=== PATIENT | female | born 1945 | race Caucasian/White ===

== ENCOUNTER 2017-01-06 11:38 | Inpatient (IN) | payer OTHER, MEDICARE ==
[~2017-01-06] VITALS: Ht 158.8 cm; Wt 98.6 kg
[2017-01-17] MEDS ORDERED: CITA40TA4 PO (14:30)
[2017-01-17] MEDS ORDERED: MAPA500T13 PO (14:30)
[2017-01-17] MEDS ORDERED: ATOR10TA15 PO (14:30)
[2017-01-17] MEDS ORDERED: AMIT150T PO (14:30)
[2017-01-17] MEDS ORDERED: GABA600T PO (14:33)
[2017-01-17] MEDS ORDERED: LANS15CA PO (14:33)
[2017-01-17] MEDS ORDERED: LISI2.5T3 PO (14:33)
[2017-01-17] MEDS ORDERED: HYDR-3580 PO (14:33)
[2017-01-17] MEDS ORDERED: NADO40TA PO (14:35)
[2017-01-17] MEDS ORDERED: XARE20TA PO (14:36)
[2017-01-17] MEDS ORDERED: TRAZ1TAB45 PO (14:38)
[2017-01-17] MEDS ORDERED: LEVO.05 PO (14:40)
[2017-01-17] MEDS ORDERED: METF500T PO (14:40)
--- NOTE | 2017-01-20 23:40 | MH ---
cc: NEVIN MCBRIDE DATE OF ADMISSION: 01/21/2017 ADMITTING DIAGNOSIS: Osteoarthritis left knee. HISTORY OF PRESENT ILLNESS: This patient is a 71 year-old female with bilateral knee arthritis. The patient had a previous right knee replacement and had done well. The patient had a previous pulmonary embolism and is on Xarelto. The patient had extensive conservative care outlined in the attached records. This patient presents for surgical treatment. PAST MEDICAL HISTORY: See attached notes. SOCIAL HISTORY, FAMILY HISTORY, AND REVIEW OF SYSTEMS: See attached notes. PHYSICAL EXAMINATION: GENERAL: The patient is a 71 year-old female in moderate distress with the left knee. HEENT: Normocephalic, atraumatic. Pupils equal, round, reactive to light and accommodation. Extraocular motions intact. NECK: Supple. CHEST: Clear. HEART: Regular rate and rhythm. ABDOMEN: Soft, nontender, normoactive bowel sounds. MUSCULOSKELETAL EXAMINATION: Left knee, pain with range of motion, mild varus deformity. Crepitus range of motion. IMPRESSION: Osteoarthritis of the left knee. PLAN: Left total knee replacement arthroplasty. CONSENT: There are risks with surgery including infection, bleeding, loss of motion, continued pain, need for further surgery, neurologic or vascular injury, deep venous thrombosis, pulmonary embolism. The patient understands these issues and wishes to press on with surgery as outlined above. Nevin Mcbride MD [facility] /11:03 PM /11:34 PM
[2017-01-21] MEDS ORDERED: METOPROLOL TARTRATE 25 MG TAB PO PRN (08:30)
[2017-01-21] MEDS ORDERED: CHLORHEXIDINE GLUCONATE 2 % 1 PACK (2 CLOTHS) TOPICAL PRN (08:30)
[2017-01-21] MEDS ORDERED: INSULIN HUMAN REGULAR 1,000 UNITS/10 ML VIAL SQ PRN (08:30)
[2017-01-21] MEDS ORDERED: LACTATED RINGER'S 1000 ML IV PRN (08:30)
[2017-01-21] MEDS ORDERED: POVIDONE IODINE 5% (ANTISEPSIS KIT) 4 APPLICATIONS EACH NARE PRN (08:30)
[2017-01-21] MEDS ORDERED: SODIUM CHLORID 0.9% 500 ML IV PRN (08:30)
[2017-01-21] MEDS ORDERED: EXPAREL PERI-ARTICULAR INJECTION (TOTAL VOL. 60 ML) P-ARTICULR SCH ×2 (08:45)
[2017-01-21] MEDS ORDERED: VANCOMYCIN 1000 MG/NS 250 ML (for <70 kg) IV SCH ×2 (08:45)
[2017-01-21] MEDS ORDERED: ceFAZolin 2 GM PREMIX 50 ML IV SCH (08:45)
[2017-01-21] MEDS ORDERED: POVIDONE IODINE 7.5% SCRUB 118 ML BOTTLE TOPICAL SCH (08:45)
[2017-01-21] MEDS ORDERED: ENOX100P SQ (08:56)
[2017-01-21 08:59] VITALS: BP 124/65; PULSE 70; RESP 20; TEMP 98.6; O2SAT 94
[2017-01-21] MEDS ORDERED: SODIUM CHLORIDE 0.9% IV SCH (09:00)
[2017-01-21] MEDS ORDERED: TRANEXAMIC ACID IV SCH (09:00)
[2017-01-21] MEDS ORDERED: GENTAMICIN SULFATE 80 MG/2 ML VIAL ONE (09:15)
[2017-01-21] MEDS ORDERED: BUPIVACAINE LIPOSOME PF 1.3% 20 ML VIAL ONE (09:16)
[2017-01-21 09:21] LABS: BACTERIA, URINE RARE /hpf; BLOOD, URINE NEG (NEG); GLUCOSE,URINE NEG (NEG); HYALINE CAST, URINE 3 /lpf (RARE); KETONE, URINE NEG (NEG); MUCUS URINE FEW /lpf (OCC); NITRITE,URINE NEG (NEG); SQUAMOUS EPITHELIAL CELL URINE 1 /hpf (0-5); URINE COLOR YELLOW (YELLW/STRAW)
[2017-01-21 09:24] LABS: COMMENT (UR) CATH-CULTURE IND; CULTURE IF INDICATED CATH CULTURE IND
[2017-01-21] MEDS ORDERED: FAMOTIDINE 20 MG/2 ML VIAL ONE (10:24)
[2017-01-21] MEDS ORDERED: MIDAZOLAM HCL 2 MG/2 ML VIAL ONE (10:24)
[2017-01-21] MEDS ORDERED: ACETAMINOPHEN 1000 MG/100 ML VIAL IV ONE (10:40)
[2017-01-21] MEDS ORDERED: PHENYLEPH/NS 1000 MCG/10 ML SYR IV ONE (12:00)
[2017-01-21] MEDS ORDERED: NEOSTIGMINE 3 MG/3 ML SYR IV ONE (12:00)
[2017-01-21] MEDS ORDERED: ONDANSETRON HCL 4 MG/2 ML VIAL IV PUSH ONE (12:00)
[2017-01-21] MEDS ORDERED: ePHEDrine/NS 25 MG/5 ML SYR IV ONE (12:00)
[2017-01-21] MEDS ORDERED: LACTATED RINGER'S 1000 ML INJ 1,000 ML IV ONE (12:00)
[2017-01-21] MEDS ORDERED: PROPOFOL 200 MG/20 ML AMP IV ONE (12:00)
[2017-01-21] MEDS ORDERED: OXYC-392 PO (13:40)
[2017-01-21] MEDS ORDERED: XARE10TA PO (13:40)
--- NOTE | 2017-01-21 13:43 | PD.OP ---
cc: Allan Prieto MD Operative Report Date of Surgery: January 21, 2017 Preoperative Diagnosis: Osteoarthritis left knee Postoperative Diagnosis: Same Procedure: Left total knee replacement arthroplasty Anesthesia: Gen. with regional block Surgeon: Allan Prieto English Composition Teacher(s): MAURA Klein Operation and Findings: EBL: 200 cc INDICATION: This patient presents with long-standing arthritis of the knee. Attachment record documents conservative measures. The patient now presents for surgical treatment. NOTE: Janey Klein PA-C was present for the entire surgical procedure as my esl instructional assistant. In my medical opinion her skill and care was necessary for proper management of this patient. TOURNIQUET TIME: 49 minutes COMPANY: [employer] FEMUR: Size 3, posterior stabilized, left TIBIA: Size 2, fixed bearing PATELLA: 32 mm POLYETHYLENE INSERT: 11 mm PROCEDURE: This patient was brought the operating room and anesthetized in the supine position. The patient was positioned supine on the table. The tourniquet was placed about the thigh, and the leg was scrubbed with alcohol followed by Hibiclens followed by ChloraPrep and draped sterilely. A timeout was done, and antibiotics were given. After exsanguination the tourniquet was inflated to 250 mmHg. An anterior incision was made and a median parapatellar arthrotomy was performed. The patella was released laterally and subluxed allowing freehand cut of the patella which was then sized. A metal cap was placed over the exposed patellar surface for protection. A docking pilot hole was placed in the distal femur allowing a 5 valgus cut removing 10 mm from the distal femur. Anterior posterior and chamfer cuts were made. The posterior stabilize osteotomy was made. The attention was directed to the tibia. Retractors were positioned. The external alignment guide was used allowing the lateral tibia to be used as referencing guide and cut utilizing an oscillating saw taking care to avoid any injury to the surrounding soft tissues. This was sized properly. Trial reduction showed that the insert fit nicely. The patient had range of motion extension 0 flexion 120. A medial release was not necessary. The bony surfaces prepared. On the back table 2 packets of methylmethacrylate were mixed. The components were cemented. Excess cement was removed. The tourniquet let down and hemostasis was controlled. The final plastic insert was inserted. Range of motion was the same as previously noted. A drain was brought through a separate stab incision. The arthrotomy was repaired with interrupted #1 Vicryl suture, subcutaneous tissue 2-0 Vicryl suture and skin with metallic rodrigo A sterile dressing was applied. Sponge counts, needle counts and instrument counts were all correct. The patient tolerated procedure well and was taken to recovery in satisfactory condition. FINDINGS: There was severe osteoarthritis of the left knee. Mild instability was encountered. No complication was appreciated. Allan Prieto MD January 21, 2017 13:43
[2017-01-21] MEDS ORDERED: MISCELLANEOUS PHARMACY INFORMATION XX ONE (13:45)
[2017-01-21] MEDS ORDERED: Post-op Orders (for Pharmacy) MISC XX ONE (13:45)
[2017-01-21] MEDS ORDERED: ONDANSETRON HCL 4 MG/2 ML VIAL IVP PRN (13:45)
[2017-01-21] MEDS ORDERED: MORPHINE SULFATE 8 MG/ML INJ IM PRN (13:45)
[2017-01-21] MEDS ORDERED: MISCELLANEOUS NURSING INFORMATION XX PRN (13:45)
[2017-01-21] MEDS ORDERED: SODIUM CHLORIDE 0.9% FLUSH 5 ML FLUSH IVF PRN (13:45)
[2017-01-21] MEDS ORDERED: DO NOT ADM ANY ANTICOAGULANT DRUGS PRN (14:02)
[2017-01-21] MEDS ORDERED: PILL SPLITTER OTHER PRN (14:30)
[2017-01-21] MEDS: LACTATED RINGER'S 1000 ML INJ 1,000 ML IV SCH (14:34)
[2017-01-21] MEDS ORDERED: *morphine SULFATE 8 MG/ML PERIprocedure ONLY ONE ×2 (14:44→15:04)
--- NOTE | 2017-01-21 15:04 | RADRPT ---
EXAM DATE/TIME: 01/21/2017 14:30 [facility] COMPARISON: No previous studies available for comparison. INDICATIONS : Post op left knee surgery. MEDICAL HISTORY : Hypertension. Seizures. SURGICAL HISTORY : Total knee replacement, right. Hysterectomy. Appendectomy. ENCOUNTER: Initial ACUITY: 1 day PAIN SCORE: 0/10 LOCATION: Left Knee. FINDINGS: AP and lateral views of the left knee demonstrate changes consistent with recent total knee arthropla sty with metallic hardware in place in the distal femur and proximal tibia. There is a radiolucent pa tellar component. Skin rodrigo are present anteriorly. There is soft tissue gas present, as expected. A surgical drain is in place. CONCLUSION: Expected findings following left total knee arthroplasty. Nick Qureshi MD on January 21, 2017 at 15:01 Board Certified Radiologist. This report was verified electronically.
[2017-01-21 15:52] VITALS: BP 135/71; PULSE 80; RESP 17; TEMP 95.4; O2SAT 94
[2017-01-21] MEDS ORDERED: CPMMACHINE (17:27)
[2017-01-21] MEDS ORDERED: COMMODE 3-IN-11 MIS (17:28)
[2017-01-21] MEDS ORDERED: WALKER WHEELS/F1 MIS (17:28)
--- NOTE | 2017-01-21 17:29 | HHI.DCPOC ---
Discharge Care Plan Diagnosis: (1) Left knee pain (2) Osteoarthritis of left knee Your Health Problems Are: Incision/Drains Inflammation Swelling Goals to Promote Your Health * To prevent worsening of your condition and complications * To maintain your health at the optimal level Directions to Meet Your Goals Take your medications as prescribed Follow your dietary instruction Follow activity as directed Keep your appointments as scheduled Take your immunizations and boosters as scheduled If your symptoms worsen call your PCP, if no PCP go to Urgent Care Center or Emergency Room Smoking is Dangerous to Your Health. Avoid second hand smoke Call the 24-hour hour crisis hotline for domestic abuse at Bianca Hamlin January 21, 2017 17:29
--- NOTE | 2017-01-21 17:30 | HHI.DS ---
Discharge Summary Admission Date January 21, 2017 at 08:02 Discharge Date: Jan 24, 2017 Admitting Diagnosis see below Diagnosis: (1) Left knee pain Diagnosis: Principal (2) Osteoarthritis of left knee Diagnosis: Principal (3) Urinary retention Diagnosis: Secondary Procedures Left total knee arthroplasty Brief History This is a 71 year old female patient with a history of bilateral knee pain and arthritis for 4-5 years. She had a previous right total knee replacement. She did well surgically but experienced a postoperative pulmonary embolism which require long term use of anticoagulants. She continued to struggle with left knee pain but could not get clearance for further surgery. Multiple conservative measures were pursued including use of medications, a brace, multiple steroid and viscosupplement injections. Once she obtained medical clearance surgical treatment was recommended. She elected to move forward and presents for the above. Significant Findings Laboratory Tests Test 01/21/17 08:55 Urine Leukocyte Esterase MOD (NEG) Urine Bacteria RARE /hpf (NONE) Urine Mucus FEW /lpf (OCC) Hospital Course Surgical treatment was performed on the day of admission. She recovered well in PACU and was transferred to the orthopaedic floor. Pain was controlled with IV and oral medications. DVT prophylaxis was initiated pod#0 due to history of PE. Her xarelto dose was continued at 10mg daily versus 20mg daily to avoid excessive bleeding. She struggled with urinary retention though the patient has a long history of utilizing straight catheterization at home. She was compliant with physical therapy. After 3 days she was found to be stable and discharged to alf to assist her with her catheterizations. She was instructed to continue her xarelto 10 mg for 7 days and then return to 20mg dose thereafter. She was also to continue therapy and to ambulate regularly, and to pursue a high fiber diet for 5 days. Pt Condition on Discharge: Stable Discharge Disposition: Disch w/ Home Health Serv Discharge Instructions Diet Instructions: Diabetic Diet, High Fiber Diet Activities You Can Perform: Weight Bearing as Oz Activities to Avoid: Strenuous Activity New Medications: Commode 3-in-1 (Commode 3-in-1) 1 Mis Mis 1 EA .ROUTE DIRECTED #1 Ref 0 EA CPM-Continuous Passive Motion Machine (CPM-Continuous Passive Motion Machine) 1 Ea Device 1 EA .ROUTE DIRECTED #1 Ref 0 EA Oxycodone (Oxycodone) 5 Mg Tab 5 MG PO Q4H PRN PAIN #50 Ref 0 TAB Rivaroxaban (Xarelto) 10 Mg Tab 10 MG PO DAILY PRN Prevent Blood Clot #7 Ref 0 TAB Walker with Front Wheels (Walker with Front Wheels) 1 Mis Mis 1 EA .ROUTE DIRECTED #1 Ref 0 EA Continued Medications: Acetaminophen (Mapap Extra Strength) 500 Mg Tab 500 MG PO Q4-6H PRN HEADACHE Ref 0 TAB Amitriptyline (Amitriptyline) 150 Mg Tab 150 MG PO HS Control Depression #30 Ref 0 TAB Atorvastatin (Atorvastatin) 10 Mg Tab 10 MG PO HS Cholesterol Management #30 Ref 0 TAB Citalopram (Citalopram) 40 Mg Tab 40 MG PO DAILY Control Depression #30 Ref 0 TAB Gabapentin (Gabapentin) 600 Mg Tab 300 MG PO BID #60 Ref 0 TAB Hydrocodone-Acetaminophen (Hydrocodone-Acetaminophen) 7.5-325 mg Tab 1 TAB PO Q4H PRN PAIN Ref 0 TAB Lansoprazole (Lansoprazole) 15 Mg Capdr 15 MG PO DAILY Ref 0 CAP Levothyroxine (Synthroid) 50 Mcg Tab 50 MCG PO DAILY Thyroid #30 Ref 0 TAB Lisinopril (Lisinopril) 2.5 Mg Tab 2.5 MG PO DAILY #30 Ref 0 TAB Metformin (Metformin) 500 Mg Tab 500 MG PO DAILY With a meal Blood Sugar Management #30 Ref 0 TAB Nadolol (Nadolol) 40 Mg Tab 40 MG PO BID #30 Ref 0 TAB Trazodone HCl (Trazodone HCl) 150 Mg Tablet 100 MG PO HS Discontinued Medications: Enoxaparin Inj (Lovenox Inj) 100 Mg/Ml Syr 100 MG SQ BID Blood Clot Prevention Ref 0 SYRINGE Rivaroxaban (Xarelto) 20 Mg Tab 20 MG PO HS Blood Clot Prevention Ref 0 TAB Bianca Hamlin January 21, 2017 17:29
[2017-01-21 20:00] VITALS: BP 117/62; PULSE 88; RESP 22; TEMP 96.4; O2SAT 94
[2017-01-21] MEDS ORDERED: TEMAZEPAM 15 MG CAP PO PRN (21:00)
[2017-01-21] MEDS: SODIUM CHLORIDE 0.9% FLUSH 5 ML FLUSH IVF SCH (21:00)
[2017-01-21] MEDS: ATORVASTATIN 10 MG TAB PO SCH (22:01)
[2017-01-21] MEDS: AMITRIPTYLINE HCL 75 MG TAB PO SCH (22:02)
[2017-01-21] MEDS: traZODone HCL 100 MG TAB PO SCH (22:02)
[2017-01-21] MEDS: SENNOSIDES 8.6 MG TAB PO SCH (22:02)
[2017-01-21] MEDS: MAGNESIUM HYDROXIDE SUSP 30 ML CUP PO SCH (22:02)
[2017-01-21] MEDS: GABAPENTIN 300 MG CAP PO SCH (22:02)
[2017-01-21] MEDS: NADOLOL 40 MG TAB PO SCH (22:08)
[2017-01-22] VITALS (9 sets, daily range): BP systolic 103–143; BP diastolic 50–63; PULSE 78–96; RESP 17–20; TEMP 96–100.9; O2SAT 92–100
[2017-01-22] MEDS: oxyCODONE/ACETAMINOPHEN 5 MG/325 MG TAB PO PRN ×4 (00:11→16:11)
[2017-01-22] MEDS: RIVAROXABAN 10 MG TAB PO SCH (02:04)
[2017-01-22] MEDS: LACTATED RINGER'S 1000 ML INJ 1,000 ML IV SCH ×2 (02:06→14:32)
[2017-01-22] MEDS: LEVOTHYROXINE SODIUM 50 MCG TAB PO SCH (05:13)
[2017-01-22 07:42] LABS: HEMATOCRIT 28.4 % (35.0-46.0); REVIEW FLAG FINAL
[2017-01-22] MEDS: SODIUM CHLORIDE 0.9% FLUSH 5 ML FLUSH IVF SCH ×2 (09:00→21:00)
[2017-01-22] MEDS: MAGNESIUM HYDROXIDE SUSP 30 ML CUP PO SCH ×2 (09:09→22:20)
[2017-01-22] MEDS: LISINOPRIL 5 MG TAB PO SCH (09:10)
[2017-01-22] MEDS: GABAPENTIN 300 MG CAP PO SCH ×2 (09:10→22:20)
[2017-01-22] MEDS: metFORMIN HCL 500 MG TAB PO SCH (09:10)
[2017-01-22] MEDS: CITALOPRAM HYDROBROMIDE 40 MG TAB PO SCH (09:10)
[2017-01-22] MEDS: PANTOPRAZOLE SOD 20 MG DELAYED RELEASE TAB PO SCH (09:11)
[2017-01-22] MEDS: NADOLOL 40 MG TAB PO SCH ×2 (09:11→22:20)
--- NOTE | 2017-01-22 11:41 | HHI.FF ---
Face to Face Verification Diagnosis: (1) Left knee pain (2) Osteoarthritis of left knee Physical Therapy Gait training, Safety evaluation, Transfer training, bed to chair Knee: Total knee, Protocol: Left, Full weight bearing Left LE Weight Bearing: WB as tolerated Additional Instructions PT 4-5 days/wk for 2 weeks. WBAT LLE. TKA protocol. Walker as needed. CPM bid as tolerated , 0-60 w goal of 100 flexion Nursing RN Days per Week: 2 x Week(s): 1 Dressing Changes: Do not change dressing Additional Instructions Vitals assessment. Dressing assessment - do not change unless saturated. *Pt has history of utilizing straight cath 2-3 times daily. I have seen patient Germania Taylor on 01/22/17. My clinical findings support the need for the requested home health care services because: Limited ability to care for self High risk of falls I certify that my clinical findings support that this patient is homebound because: Post-op weakness Unsteady gait/balance Bianca Hamlin January 22, 2017 11:41
--- NOTE | 2017-01-22 11:52 | PD.ORT.PN ---
Subjective Subjective Remarks She notes moderate left knee pain and throbbing. She states it 'is no different from her last knee'. She had very transient shortness of breath last night. A nasal cannula was applied. She states she feels great this morning. She denies any significant difficulty breathing or shortness of breath. Objective Vitals Vital Signs Date Time Temp Pulse Resp B/P Pulse Ox O2 Delivery O2 Flow Rate FiO2 01/22/17 09:02 100 21 01/22/17 08:00 98.2 87 18 129/50 95 01/22/17 04:00 98.1 94 20 143/62 94 01/22/17 00:00 98.3 90 18 127/63 95 01/21/17 20:00 96.4 88 22 117/62 94 01/21/17 18:43 Nasal Cannula 2.00 01/21/17 18:10 Nasal Cannula 2.00 01/21/17 15:52 95.4 80 17 135/71 94 01/21/17 15:15 98.2 77 16 141/69 94 Nasal Cannula 3 01/21/17 15:00 80 21 139/60 96 Nasal Cannula 3 01/21/17 14:45 71 15 134/61 95 Nasal Cannula 3 01/21/17 14:30 72 14 151/66 97 Nasal Cannula 3 01/21/17 14:15 58 13 140/63 94 Nasal Cannula 4 01/21/17 14:03 98.3 67 18 143/66 99 Nasal Cannula 4 I/O 01/21/17 01/21/17 01/21/17 01/22/17 01/22/17 01/22/17 07:00 15:00 23:00 07:00 15:00 23:00 Intake Total 1800 ml 1035 ml 581 ml Output Total 500 ml 850 ml 550 ml Balance 1300 ml 185 ml 31 ml Intake Oral 810 ml 240 ml IV Total 225 ml 341 ml Other 1800 ml Output Urine Total 450 ml 850 ml 550 ml Drainage Total 0 ml 0 ml Estimated Blood Loss 50 ml # Bowel Movements 0 0 Result Diagram: 01/22/17 0645 Procedures Left total knee arthroplasty Objective Remarks Laying in bed On CPM No acute distress LLE Dressing c/d/i, drain in place, moderate swelling, no erythema +motor at, +sens, +nvi neg homans, thigh supple Assessment & Plan Ortho Post Op Day #: 1 Problem List: (1) Left knee pain (2) Osteoarthritis of left knee Assessment and Plan 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 D/C left knee drain. Ok to redress drain site but hold incision dressing changes. PT - WBAT LLE. Walker as needed. CPM bid as tolerated, 0-60 w goal of 100 flexion. Xarelto 10mg qd. Will have her return to 20mg 10 days postop. D/C planning, HHC vs SNF. F2F written if needed. DME written. Bianca Hamlin January 22, 2017 11:52
[2017-01-22] MEDS: traZODone HCL 100 MG TAB PO SCH (22:19)
[2017-01-22] MEDS: SENNOSIDES 8.6 MG TAB PO SCH (22:19)
[2017-01-22] MEDS: ATORVASTATIN 10 MG TAB PO SCH (22:20)
[2017-01-22] MEDS: AMITRIPTYLINE HCL 75 MG TAB PO SCH (22:20)
[2017-01-23] VITALS (10 sets, daily range): BP systolic 75–140; BP diastolic 41–63; PULSE 74–93; RESP 16–18; TEMP 97.8–100.5; O2SAT 92–96
[2017-01-23] MEDS: RIVAROXABAN 10 MG TAB PO SCH (01:31)
[2017-01-23] MEDS: LACTATED RINGER'S 1000 ML INJ 1,000 ML IV SCH ×2 (01:32→08:39)
[2017-01-23] MEDS: LEVOTHYROXINE SODIUM 50 MCG TAB PO SCH (05:15)
[2017-01-23] MEDS: CITALOPRAM HYDROBROMIDE 40 MG TAB PO SCH (08:37)
[2017-01-23] MEDS: NADOLOL 40 MG TAB PO SCH ×2 (08:37→21:20)
[2017-01-23] MEDS: GABAPENTIN 300 MG CAP PO SCH ×2 (08:37→21:19)
[2017-01-23] MEDS: metFORMIN HCL 500 MG TAB PO SCH (08:37)
[2017-01-23] MEDS: oxyCODONE/ACETAMINOPHEN 5 MG/325 MG TAB PO PRN ×3 (08:37→21:19)
[2017-01-23] MEDS: PANTOPRAZOLE SOD 20 MG DELAYED RELEASE TAB PO SCH (08:37)
[2017-01-23] MEDS: MAGNESIUM HYDROXIDE SUSP 30 ML CUP PO SCH ×2 (08:37→21:21)
[2017-01-23] MEDS: LISINOPRIL 5 MG TAB PO SCH (08:37)
[2017-01-23] MEDS: SODIUM CHLORIDE 0.9% FLUSH 5 ML FLUSH IVF SCH ×2 (08:43→21:21)
[2017-01-23] MEDS ORDERED: BISACODYL 10 MG SUPP RECTAL PRN (10:00)
[2017-01-23] MEDS: BISACODYL EC 5 MG TABEC PO PRN (11:00)
[2017-01-23] MEDS: ATORVASTATIN 10 MG TAB PO SCH (21:20)
[2017-01-23] MEDS: DOCUSATE SODIUM 100 MG CAP PO SCH (21:20)
[2017-01-23] MEDS: AMITRIPTYLINE HCL 75 MG TAB PO SCH (21:20)
[2017-01-23] MEDS: traZODone HCL 100 MG TAB PO SCH (21:20)
[2017-01-23] MEDS: SENNOSIDES 8.6 MG TAB PO SCH (21:21)
[2017-01-24] MEDS: RIVAROXABAN 10 MG TAB PO SCH (02:59)
[2017-01-24] MEDS: LACTATED RINGER'S 1000 ML INJ 1,000 ML IV SCH ×2 (02:59→09:17)
[2017-01-24 03:24] VITALS: BP 97/54; PULSE 72; RESP 18; TEMP 97.6; O2SAT 94
[2017-01-24] MEDS: LEVOTHYROXINE SODIUM 50 MCG TAB PO SCH (05:02)
[2017-01-24] MEDS: NADOLOL 40 MG TAB PO SCH (06:51)
[2017-01-24] MEDS: LISINOPRIL 5 MG TAB PO SCH (06:51)
[2017-01-24 07:10] LABS: HEMATOCRIT 24.9 % (35.0-46.0); REVIEW FLAG FINAL
[2017-01-24] MEDS: PANTOPRAZOLE SOD 20 MG DELAYED RELEASE TAB PO SCH (07:12)
[2017-01-24] MEDS: SODIUM CHLORIDE 0.9% FLUSH 5 ML FLUSH IVF SCH (07:12)
[2017-01-24] MEDS: DOCUSATE SODIUM 100 MG CAP PO SCH (07:12)
[2017-01-24] MEDS: MAGNESIUM HYDROXIDE SUSP 30 ML CUP PO SCH (07:12)
[2017-01-24] MEDS: BISACODYL EC 5 MG TABEC PO PRN (07:12)
[2017-01-24] MEDS: GABAPENTIN 300 MG CAP PO SCH (07:12)
[2017-01-24] MEDS: CITALOPRAM HYDROBROMIDE 40 MG TAB PO SCH (07:13)
[2017-01-24] MEDS: oxyCODONE/ACETAMINOPHEN 5 MG/325 MG TAB PO PRN ×2 (07:13→13:51)
[2017-01-24] MEDS: metFORMIN HCL 500 MG TAB PO SCH (07:13)
--- NOTE | 2017-01-24 07:57 | PD.ORT.PN ---
Subjective Subjective Remarks Doing well. Struggling with self-catheterization. Has known history of chronic urinary tract infection. Leaving [facility] and is ill advised. Probably going to go to SNF as opposed to home Objective Vitals Vital Signs Date Time Temp Pulse Resp B/P Pulse Ox O2 Delivery O2 Flow Rate FiO2 01/24/17 07:17 94 Room Air 01/24/17 03:24 97.6 72 18 97/54 94 01/23/17 23:57 97.9 75 17 93/43 93 01/23/17 22:30 Nasal Cannula 2.00 01/23/17 20:24 99.7 83 18 111/50 93 01/23/17 17:37 Room Air 01/23/17 15:37 Room Air 01/23/17 15:31 99.2 77 18 140/56 95 01/23/17 14:31 Room Air 01/23/17 10:50 97.8 78 16 84/41 95 01/23/17 10:48 86/45 01/23/17 10:43 93 Nasal Cannula 1.00 01/23/17 10:43 74 16 75/41 93 01/23/17 10:42 94 Nasal Cannula 2.00 01/23/17 10:42 80/49 94 01/23/17 08:33 Nasal Cannula 2.00 I/O 01/23/17 01/23/17 01/23/17 01/24/17 01/24/17 01/24/17 07:00 15:00 23:00 07:00 15:00 23:00 Intake Total 788 ml 965 ml 240 ml Output Total 225 ml 450 ml 500 ml Balance 563 ml 515 ml -260 ml Intake Oral 240 ml 600 ml 240 ml IV Total 548 ml 365 ml Output Urine Total 225 ml 450 ml 500 ml # Voids 1 # Bowel Movements 0 0 0 Result Diagram: 01/24/17 0620 Procedures Left total knee arthroplasty Objective Remarks Laying in bed. Moderate swelling of left knee no different than yesterday. No calf tenderness. Negative Homans. Dressing with mild drainage Assessment & Plan Problem List: (1) Left knee pain (2) Osteoarthritis of left knee Assessment and Plan s/p L TKA: POD #3 PLAN: Discharge to SNF Weightbearing as tolerated Xarelto 10 mg daily for 7 days and then back to her preoperative dose of 20 mg daily. Excessive bleeding might be an issue with her, but that is weighed against the possibility of a pulmonary embolism which she has had in the past Oxycodone for pain Follow-up in 2 weeks Allan Prieto MD Jan 24, 2017 07:57
[2017-01-24 08:10] VITALS: BP 102/50; PULSE 77; RESP 16; TEMP 100; O2SAT 96
[2017-01-24 11:09] VITALS: BP 106/48; PULSE 74; RESP 16; TEMP 97.8; O2SAT 94
== END 2017-01-24 17:01 | DRG 470 ==
LOC: HSDI 01-21 08:02 → N06A 01-21 15:31
PROVIDERS: ADMIT Orthopaedic Surgery Orthopaedic Surgery of the Spine; ATTEND Orthopaedic Surgery Orthopaedic Surgery of the Spine
PROC: 3E0T3CZ (ICD-10-PCS; 2017-01-21)
PROC: 0SRD0J9 Replacement of Left Knee Joint with Synthetic Substitute, Cemented, Open Approach (ICD-10-PCS; principal; 2017-01-21 11:14)
DX: M17.12 Unilateral primary osteoarthritis, left knee (principal); Z86.711 Personal history of pulmonary embolism; Z79.02 Long term (current) use of antithrombotics/antiplatelets; Z87.440 Personal history of urinary (tract) infections
CPT/HCPCS: 36415; 73560; 81001; 85014; 85018; 86850; 86900; 86901; 86920; 87086; 94150; C1776; C9290; J0131; J0690; J1580; J2250; J2270; J2370; J2405; J2710; J3010; J3370; J7050; J7120; L1830

== ENCOUNTER 2017-02-04 10:13 | Inpatient (IN) | payer OTHER, MEDICARE ==
[~2017-02-04] VITALS: Ht 157.5 cm; Wt 98.5 kg
[~2017-02-04 10:13] MED LIST: AMIT150T PO; ATOR10TA15 PO; CITA40TA4 PO; COMMODE 3-IN-11 MIS; CPMMACHINE; GABA600T PO; HYDR-3580 PO; LANS15CA PO; LEVO.05 PO; LISI2.5T3 PO; MAPA500T13 PO; METF500T PO; NADO40TA PO; OXYC-392 PO; TRAZ1TAB45 PO; WALKER WHEELS/F1 MIS; XARE10TA PO
--- NOTE | 2017-02-05 22:19 | MH ---
cc: NEVIN MCBRIDE DATE OF ADMISSION 02/06/2017 ADMISSION DIAGNOSIS Malfunctioning left total knee replacement arthroplasty. HISTORY This is a 71-year-old female who approximately 3 weeks ago came to primary total knee replacement arthroplasty on the left and did well. She was getting out of the chair and twisted had acute onset of pain in her knee. She presented to the office and there was evidence that the plastic insert between the femoral and tibial component has displaced since its initial postoperative x-ray. We were concerned this may represent failure of the plastic spacer. She presents for early revision due to the same. PAST MEDICAL HISTORY, SOCIAL HISTORY AND FAMILY HISTORY Some see attached notes. REVIEW OF SYSTEMS See attached notes. PHYSICAL EXAMINATION GENERAL: Average built, overweight white female. HEENT: Normocephalic, atraumatic. Pupils equal, round, reactive to light and accommodation. Extraocular motions intact. NECK: Supple. CHEST: Clear. HEART: Regular rhythm. ABDOMEN: Soft, nontender. Positive bowel sounds. MUSCULOSKELETAL: Height 5.4, weight 212 pounds. BMI 36.4. Left knee healing incision. Emily have been removed. No signs of infection. Excellent range of motion. Mild pain with range of motion. IMPRESSION 1. Status post left total knee replacement arthroplasty, recent. 2. Malfunctioning left total knee replacement arthroplasty. PLAN Exposure left total knee revision with exchange of the polyethylene liner with possible revision of all components if felt to be necessary based on failure of the tibial component. CONSENT The risks of surgery including infection, bleeding, loss of motion, continued pain, need for further surgery, neurologic and vascular injury. The patient understands these issues and wishes to press on with surgery as outlined above. MD ALEE Street/ARABELLA /6:25 PM /10:13 PM GLADYS
[2017-02-06] MEDS ORDERED: PROPOFOL 200 MG/20 ML AMP IV ONE (07:44)
[2017-02-06] MEDS ORDERED: ePHEDrine/NS 25 MG/5 ML SYR IV ONE (07:44)
[2017-02-06] MEDS ORDERED: PHENYLEPH/NS 1000 MCG/10 ML SYR IV ONE (07:45)
[2017-02-06] MEDS ORDERED: ONDANSETRON HCL 4 MG/2 ML VIAL IV PUSH ONE (07:45)
[2017-02-06 08:00] VITALS: BP 124/54; PULSE 75; RESP 16; TEMP 98.1; O2SAT 96
[2017-02-06] MEDS ORDERED: BUPIVACAINE LIPOSOME PF 1.3% 20 ML VIAL ONE (11:02)
[2017-02-06] MEDS ORDERED: METOPROLOL TARTRATE 25 MG TAB PO PRN (11:30)
[2017-02-06] MEDS ORDERED: CHLORHEXIDINE GLUCONATE 2 % 1 PACK (2 CLOTHS) TOPICAL PRN (11:30)
[2017-02-06] MEDS ORDERED: SODIUM CHLORID 0.9% 500 ML IV PRN (11:30)
[2017-02-06] MEDS ORDERED: LACTATED RINGER'S 1000 ML IV PRN (11:30)
[2017-02-06] MEDS ORDERED: INSULIN HUMAN REGULAR 1,000 UNITS/10 ML VIAL SQ PRN (11:30)
[2017-02-06] MEDS ORDERED: POVIDONE IODINE 5% (ANTISEPSIS KIT) 4 APPLICATIONS EACH NARE PRN (11:30)
[2017-02-06] MEDS ORDERED: GABA300C5 PO (11:39)
[2017-02-06] MEDS ORDERED: POVIDONE IODINE 7.5% SCRUB 118 ML BOTTLE TOPICAL SCH (11:45)
[2017-02-06] MEDS ORDERED: ceFAZolin 2 GM PREMIX 50 ML IV SCH (11:45)
[2017-02-06] MEDS ORDERED: VANCOMYCIN 1000 MG/NS 250 ML (for <70 kg) IV SCH ×2 (11:45)
[2017-02-06] MEDS ORDERED: ENOX100P SQ (11:46)
[2017-02-06] MEDS ORDERED: GENTAMICIN SULFATE 80 MG/2 ML VIAL ONE (11:49)
[2017-02-06 11:50] VITALS: BP 136/79; PULSE 84; RESP 20; TEMP 98.3; O2SAT 98
[2017-02-06] MEDS ORDERED: TRANEXAMIC ACID IV SCH (12:30)
[2017-02-06] MEDS ORDERED: SODIUM CHLORIDE 0.9% IV SCH (12:30)
[2017-02-06] MEDS ORDERED: BUPIVACAINE LIPOSO PF 1.3% INJ 20 ML in SODIUM CHLORIDE 0.9% INJ 40 ML P-ARTICULR SCH (13:00)
[2017-02-06] MEDS ORDERED: FAMOTIDINE 20 MG/2 ML VIAL ONE (14:48)
[2017-02-06] MEDS ORDERED: Post-op Orders (for Pharmacy) MISC XX ONE (16:45)
[2017-02-06] MEDS ORDERED: MISCELLANEOUS PHARMACY INFORMATION XX ONE (16:45)
[2017-02-06] MEDS ORDERED: ACETAMINOPHEN 500 MG CPLT PO PRN (16:45)
[2017-02-06] MEDS ORDERED: TEMAZEPAM 15 MG CAP PO PRN (16:45)
[2017-02-06] MEDS ORDERED: NALOXONE HCL 0.4 MG/ML AMP IV PRN (16:45)
[2017-02-06] MEDS ORDERED: MISCELLANEOUS NURSING INFORMATION XX PRN (16:45)
[2017-02-06] MEDS ORDERED: SODIUM CHLORIDE 0.9% FLUSH 5 ML FLUSH IVF PRN (16:45)
[2017-02-06] MEDS ORDERED: MORPHINE SULFATE 30 MG/30 ML PCA IV SCH (16:45)
[2017-02-06] MEDS ORDERED: MORPHINE SULFATE 8 MG/ML INJ IM PRN (16:45)
--- NOTE | 2017-02-06 16:50 | PD.OP ---
cc: Allan Prieto MD Operative Report Date of Surgery: Feb 06, 2017 Preoperative Diagnosis: Malfunctioning left total knee replacement arthroplasty Postoperative Diagnosis: Same Procedure: Revision left total knee replacement arthroplasty, tibial plastic insert Anesthesia: Gen. Surgeon: Allan Prieto Medical Coordinator Pesticide Use(s): MAURA Klein Operation and Findings: EBL: 100 cc INDICATION: This patient presents with long-standing arthritis of the knee. This patient presented for elective knee replacement arthroplasty 2-1/2 weeks ago. The patient was getting out of the chair and had a twisting moment when she suddenly had acute onset of pain in the region of the left knee. Follow-up x-ray showed dislodgment of the tibial plastic component. She presents for revision of the same. NOTE: Janey Klein PA-C was present for the entire surgical procedure as my assistant professor of nursing. In my medical opinion her skill and care was necessary for proper management of this patient. TOURNIQUET TIME: 20 minutes COMPANY: [employer] FEMUR: Size 3, cemented, posterior stabilized TIBIA: Size 3, fixed bearing POLYETHYLENE INSERT: 13 mm mm PROCEDURE: This patient was brought the operating room and anesthetized in the supine position. The patient was positioned supine on the table. The tourniquet was placed about the thigh, and the leg was scrubbed with alcohol followed by Hibiclens followed by ChloraPrep and draped sterilely. A timeout was done, and antibiotics were given. After exsanguination the tourniquet was inflated to 250 mmHg. the previous incision was excised. A median parapatellar arthrotomy was performed. The previous sutures were removed. There was no evidence of an infection. The wound was irrigated copiously. The tibial component was inspected. The tibial plastic had dislodged from its initial position. Soft tissue dissection allowed good visualization of the femur and the tibia. All of the hematoma was removed. The metal was inspected and it did not appear to be a malfunctioning component to it. We trialed with a +11 and +13. We felt the stability was better with a +13. We opened a 13 mm size 3 tibial insert. Very carefully soft tissue was dissected. This was impacted. We checked posteriorly and anteriorly and this was secured according to title i assistant's recommendation. The patient was tried through range of motion and found to have full extension to 125 flexion. It was stable in flexion and extension. The last component appeared to be solid. There was no soft tissue along any edge medial lateral posterior and anterior. The tourniquet was let down and hemostasis was controlled. A drain was brought through separate stab incision. The arthrotomy was Interrupted #1 Vicryl suture, subcutaneous tissues 2-0 Vicryl suture and skin with metallic rodrigo A sterile dressing was applied. Sponge counts, needle counts and instrument counts were all correct. The patient tolerated procedure well and was taken to recovery in satisfactory condition. FINDINGS: There was evidence of malfunctioning of the tibial plastic insert. This was changed from 11 mm insert to a 13 mm insert. Very carefully we checked anterior posterior medial and lateral to ensure that there was no evidence of any obstruction proper placement and securing of the tibial plastic. Stability was excellent. The tibial plastic was returned to the title i assistant for re-evaluation and analysis. Allan Prieto MD Feb 06, 2017 16:50
[2017-02-06] MEDS ORDERED: OXYC1TAB63 PO (16:52)
[2017-02-06] MEDS ORDERED: XARE10TA PO (16:52)
[2017-02-06] MEDS ORDERED: PILL SPLITTER OTHER PRN (17:30)
[2017-02-06] MEDS: LACTATED RINGER'S 1000 ML INJ 1,000 ML IV SCH (17:30)
[2017-02-06] MEDS ORDERED: *morphine SULFATE 8 MG/ML PERIprocedure ONLY ONE ×3 (17:35→17:51)
[2017-02-06] MEDS ORDERED: MIDAZOLAM HCL 2 MG/2 ML VIAL ONE (17:37)
[2017-02-06] MEDS ORDERED: fentaNYL CITRATE 250 MCG/5 ML AMP ONE (17:37)
[2017-02-06] MEDS ORDERED: DO NOT ADM ANY ANTICOAGULANT DRUGS PRN (18:00)
[2017-02-06] MEDS ORDERED: *HYDROmorphone PF 1 MG VIAL PERIprocedural Use ONLY ONE ×2 (18:06→18:52)
--- NOTE | 2017-02-06 18:11 | RADRPT ---
EXAM DATE/TIME: 02/06/2017 17:31 [facility] COMPARISON: KNEE LEFT LTD (1 OR 2VWS), January 21, 2017, 14:30. INDICATIONS : Post op left knee. MEDICAL HISTORY : None. SURGICAL HISTORY : None. ENCOUNTER: Initial ACUITY: 1 day PAIN SCORE: 10/10 LOCATION: Left knee. FINDINGS: Surgical changes of left total knee arthroplasty again noted. Skin rodrigo remain in place. A superol ateral drain remains in place as well. A moderate joint effusion is suspected. Alignment is normal. N o fracture or bone destruction seen. No evidence of hardware failure or loosening. CONCLUSION: Left total knee arthroplasty changes again seen with a nonspecific joint effusion but no other acute abnormality seen. Nick Grossman MD on February 06, 2017 at 18:07 Board Certified Radiologist. This report was verified electronically.
[2017-02-06] MEDS: SODIUM CHLORIDE 0.9% FLUSH 5 ML FLUSH IVF SCH (21:00)
[2017-02-06] MEDS: traZODone HCL 100 MG TAB PO SCH (21:32)
[2017-02-06] MEDS: GABAPENTIN 300 MG CAP PO SCH (21:32)
[2017-02-06] MEDS: ATORVASTATIN 10 MG TAB PO SCH (21:33)
[2017-02-06] MEDS: MAGNESIUM HYDROXIDE SUSP 30 ML CUP PO SCH (21:33)
[2017-02-06] MEDS: SENNOSIDES 8.6 MG TAB PO SCH (21:33)
[2017-02-06] MEDS: NADOLOL 40 MG TAB PO SCH (21:47)
[2017-02-06] MEDS: AMITRIPTYLINE HCL 75 MG TAB PO SCH (21:47)
[2017-02-06] MEDS: PCA - TOTAL MG MORPHINE DELIVERED PER SHIFT SCH (21:48)
[2017-02-07] VITALS (8 sets, daily range): BP systolic 92–138; BP diastolic 44–69; PULSE 74–90; RESP 15–20; TEMP 96.8–99.9; O2SAT 90–100
[2017-02-07] MEDS: LACTATED RINGER'S 1000 ML INJ 1,000 ML IV SCH ×2 (05:35→20:18)
[2017-02-07] MEDS: PANTOPRAZOLE SOD 20 MG DELAYED RELEASE TAB PO SCH (05:36)
[2017-02-07] MEDS: RIVAROXABAN 10 MG TAB PO SCH (05:36)
[2017-02-07] MEDS: LEVOTHYROXINE SODIUM 50 MCG TAB PO SCH (05:36)
[2017-02-07] MEDS: PCA - TOTAL MG MORPHINE DELIVERED PER SHIFT SCH (06:00)
[2017-02-07 07:10] LABS: HEMATOCRIT 23.9 % (35.0-46.0); REVIEW FLAG FINAL
--- NOTE | 2017-02-07 07:55 | PD.ORT.PN ---
Subjective Subjective Remarks Moderate pain in left knee. No new complaints. Patient desires discharge to home Friday. Objective Vitals Vital Signs Date Time Temp Pulse Resp B/P Pulse Ox O2 Delivery O2 Flow Rate FiO2 02/07/17 06:00 18 02/07/17 04:00 99.9 90 15 106/51 100 02/07/17 00:00 98.0 87 16 138/69 91 02/06/17 21:48 18 02/06/17 19:30 98.3 76 16 136/64 100 Nasal Cannula 2 02/06/17 19:00 80 16 136/61 100 Nasal Cannula 2 02/06/17 18:30 77 16 139/58 100 Nasal Cannula 2 02/06/17 18:15 76 16 139/64 100 Nasal Cannula 2 02/06/17 18:00 74 15 154/71 100 Nasal Cannula 2 02/06/17 17:45 74 15 136/63 100 Nasal Cannula 2 02/06/17 17:30 97.7 72 15 131/57 99 Nasal Cannula 2 02/06/17 11:50 98.3 84 20 136/79 98 02/06/17 08:00 98.1 75 16 124/54 96 I/O 02/06/17 02/06/17 02/06/17 02/07/17 02/07/17 02/07/17 07:00 15:00 23:00 07:00 15:00 23:00 Intake Total 1977 ml 1025 ml Output Total 690 ml 330 ml Balance 1287 ml 695 ml Intake Oral 240 ml IV Total 477 ml 785 ml Other 1500 ml Output Urine Total 600 ml 300 ml Drainage Total 40 ml 30 ml Estimated Blood Loss 50 ml # Bowel Movements 0 Result Diagram: 02/07/17 0647 Imaging Last 24 hours Impressions Knee X-Ray 02/06/17 1639 Signed Impressions: Service Date/Time: January 17:31 - CONCLUSION: Left total knee arthroplasty changes again seen with a nonspecific joint effusion but no other acute abnormality seen. Nick Grossman MD Objective Remarks Incision dry. No calf tenderness X-ray looks fine. Assessment & Plan Ortho Post Op Day #: 1 Problem List: Assessment and Plan Malfunctioning left total knee replacement. Revision left knee, plastic liner: POD #1 All plan: Weightbearing as tolerated Xarelto 10 mg daily for 7 days followed by 20 mg after that. Patient had previous pulmonary embolism and is on Xarelto as a baseline. Patient desires discharge to home on Friday. We will set up for retirement as a backup. MANISHA [facility] later today. Patient self catheterizes twice daily because of bladder dysfunction. No dressing change Oxycodone for pain Stable with. Allan Prieto MD Feb 07, 2017 07:54
[2017-02-07] MEDS: oxyCODONE/ACETAMINOPHEN 5 MG/325 MG TAB PO PRN ×4 (08:45→16:55)
[2017-02-07] MEDS: NADOLOL 40 MG TAB PO SCH ×2 (09:00→21:00)
[2017-02-07] MEDS: LISINOPRIL 5 MG TAB PO SCH (09:00)
[2017-02-07] MEDS: SODIUM CHLORIDE 0.9% FLUSH 5 ML FLUSH IVF SCH ×2 (09:00→20:17)
[2017-02-07] MEDS: metFORMIN HCL 500 MG TAB PO SCH (11:38)
[2017-02-07] MEDS: MAGNESIUM HYDROXIDE SUSP 30 ML CUP PO SCH ×2 (11:39→20:17)
[2017-02-07] MEDS: GABAPENTIN 300 MG CAP PO SCH ×2 (11:39→20:17)
[2017-02-07] MEDS: CITALOPRAM HYDROBROMIDE 40 MG TAB PO SCH (11:40)
[2017-02-07] MEDS: ATORVASTATIN 10 MG TAB PO SCH (20:17)
[2017-02-07] MEDS: traZODone HCL 100 MG TAB PO SCH (20:17)
[2017-02-07] MEDS: SENNOSIDES 8.6 MG TAB PO SCH (20:17)
[2017-02-07] MEDS: AMITRIPTYLINE HCL 75 MG TAB PO SCH (20:17)
[2017-02-08] VITALS (7 sets, daily range): BP systolic 100–123; BP diastolic 45–66; PULSE 71–92; RESP 16–18; TEMP 96.8–99.3; O2SAT 92–98
[2017-02-08] MEDS: oxyCODONE/ACETAMINOPHEN 5 MG/325 MG TAB PO PRN ×4 (03:26→21:08)
[2017-02-08] MEDS: LEVOTHYROXINE SODIUM 50 MCG TAB PO SCH (05:31)
[2017-02-08] MEDS: RIVAROXABAN 10 MG TAB PO SCH (05:31)
[2017-02-08] MEDS: PANTOPRAZOLE SOD 20 MG DELAYED RELEASE TAB PO SCH (05:31)
[2017-02-08] MEDS: LACTATED RINGER'S 1000 ML INJ 1,000 ML IV SCH ×2 (06:13→19:00)
[2017-02-08] MEDS: metFORMIN HCL 500 MG TAB PO SCH (08:50)
[2017-02-08] MEDS: MAGNESIUM HYDROXIDE SUSP 30 ML CUP PO SCH ×2 (08:50→21:00)
[2017-02-08] MEDS: CITALOPRAM HYDROBROMIDE 40 MG TAB PO SCH (08:50)
[2017-02-08] MEDS: GABAPENTIN 300 MG CAP PO SCH ×2 (08:50→21:07)
[2017-02-08] MEDS: LISINOPRIL 5 MG TAB PO SCH (08:50)
[2017-02-08] MEDS: SODIUM CHLORIDE 0.9% FLUSH 5 ML FLUSH IVF SCH ×2 (08:53→21:00)
[2017-02-08] MEDS: NADOLOL 40 MG TAB PO SCH ×2 (08:54→21:06)
--- NOTE | 2017-02-08 12:53 | PD.ORT.PN ---
Subjective Subjective Remarks no CP/SOB, no issues Objective Vitals Vital Signs Date Time Temp Pulse Resp B/P Pulse Ox O2 Delivery O2 Flow Rate FiO2 02/08/17 10:25 18 02/08/17 08:00 98.1 71 18 106/ 98 02/08/17 03:25 79 18 122/66 94 02/08/17 00:00 98.8 86 16 113/54 92 02/07/17 19:00 98.1 82 19 94/54 92 02/07/17 16:40 96 02/07/17 16:30 97.7 81 20 107/46 90 02/07/17 13:45 107/54 I/O 02/07/17 02/07/17 02/07/17 02/08/17 02/08/17 02/08/17 07:00 15:00 23:00 07:00 15:00 23:00 Intake Total 1025 ml 851 ml 1162 ml 860 ml Output Total 330 ml 1230 ml 350 ml 300 ml Balance 695 ml -379 ml 812 ml 560 ml Intake Oral 240 ml 480 ml 480 ml 240 ml IV Total 785 ml 371 ml 682 ml 620 ml Output Urine Total 300 ml 1200 ml 350 ml 300 ml Drainage Total 30 ml 30 ml # Voids 1 # Bowel Movements 0 0 0 0 Result Diagram: 02/07/17 0647 Imaging Last 24 hours Impressions Knee X-Ray 02/06/17 1639 Signed Impressions: Service Date/Time: January 17:31 - CONCLUSION: Left total knee arthroplasty changes again seen with a nonspecific joint effusion but no other acute abnormality seen. Nick Grossman MD Objective Remarks Incision dry. No calf tenderness X-ray looks fine. Assessment & Plan Assessment and Plan Malfunctioning left total knee replacement. Revision left knee, plastic liner: POD #2 All plan: Weightbearing as tolerated Xarelto 10 mg daily for 7 days followed by 20 mg after that. Patient had previous pulmonary embolism and is on Xarelto as a baseline. Patient desires discharge to home on Friday. We will set up for senior living as a backup. DC Vick later today. Patient self catheterizes twice daily because of bladder dysfunction. No dressing change Oxycodone for pain dc home tomorrow Jeremy Serra Jr., MD Feb 08, 2017 12:53
[2017-02-08] MEDS ORDERED: BISACODYL 10 MG SUPP RECTAL PRN (17:15)
[2017-02-08] MEDS: SENNOSIDES 8.6 MG TAB PO SCH (21:00)
[2017-02-08] MEDS: traZODone HCL 100 MG TAB PO SCH (21:06)
[2017-02-08] MEDS: ATORVASTATIN 10 MG TAB PO SCH (21:07)
[2017-02-08] MEDS: AMITRIPTYLINE HCL 75 MG TAB PO SCH (21:07)
[2017-02-09 04:35] VITALS: BP 101/51; PULSE 79; RESP 18; TEMP 97.6; O2SAT 92
[2017-02-09] MEDS: PANTOPRAZOLE SOD 20 MG DELAYED RELEASE TAB PO SCH (05:37)
[2017-02-09] MEDS: LEVOTHYROXINE SODIUM 50 MCG TAB PO SCH (05:37)
[2017-02-09] MEDS: RIVAROXABAN 10 MG TAB PO SCH (05:37)
[2017-02-09] MEDS: oxyCODONE/ACETAMINOPHEN 5 MG/325 MG TAB PO PRN ×2 (05:38→09:47)
[2017-02-09] MEDS: LACTATED RINGER'S 1000 ML INJ 1,000 ML IV SCH (07:30)
[2017-02-09 08:00] VITALS: BP 129/55; PULSE 72; RESP 18; TEMP 96.9; O2SAT 92
[2017-02-09] MEDS: SODIUM CHLORIDE 0.9% FLUSH 5 ML FLUSH IVF SCH (09:00)
[2017-02-09] MEDS: MAGNESIUM HYDROXIDE SUSP 30 ML CUP PO SCH (09:00)
[2017-02-09] MEDS: NADOLOL 40 MG TAB PO SCH (09:47)
[2017-02-09] MEDS: GABAPENTIN 300 MG CAP PO SCH (09:47)
[2017-02-09] MEDS: CITALOPRAM HYDROBROMIDE 40 MG TAB PO SCH (09:48)
[2017-02-09] MEDS: metFORMIN HCL 500 MG TAB PO SCH (09:48)
[2017-02-09] MEDS: LISINOPRIL 5 MG TAB PO SCH (09:49)
[2017-02-09 12:00] VITALS: BP 101/58; PULSE 82; RESP 18; TEMP 96; O2SAT 94
--- NOTE | 2017-02-09 13:43 | HHI.FF ---
Face to Face Verification Diagnosis: (1) Osteoarthritis of left knee Physical Therapy Gait training Hip: Progress to weight bearing Knee: Protocol: Left, Full weight bearing Left LE Weight Bearing: WB as tolerated Left LE Range of Motion: Active ROM Nursing Dressing Changes: Do not change dressing I have seen patient Germania Taylor on 02/09/17. My clinical findings support the need for the requested home health care services because: Ltd mobility - disease progression Limited ability to care for self High risk of falls I certify that my clinical findings support that this patient is homebound because: Post-op weakness Unsteady gait/balance Jeremy Serra Jr., MD Feb 09, 2017 13:43
--- NOTE | 2017-02-09 13:45 | PD.ORT.PN ---
Subjective Subjective Remarks no CP/SOB, no issues. +BM Objective Vitals Vital Signs Date Time Temp Pulse Resp B/P Pulse Ox O2 Delivery O2 Flow Rate FiO2 02/09/17 12:00 96.0 82 18 101/58 94 02/09/17 08:00 96.9 72 18 129/55 92 02/09/17 04:35 97.6 79 18 101/51 92 02/08/17 23:45 99.0 78 17 111/45 93 02/08/17 20:10 99.3 84 17 123/62 94 02/08/17 16:00 98.7 92 18 110/54 96 I/O 02/08/17 02/08/17 02/08/17 02/09/17 02/09/17 02/09/17 07:00 15:00 23:00 07:00 15:00 23:00 Intake Total 860 ml 1080 ml 240 ml Output Total 300 ml 1400 ml Balance 560 ml -320 ml 240 ml Intake Oral 240 ml 1080 ml 240 ml IV Total 620 ml Output Urine Total 300 ml 1400 ml # Voids 1 5 2 # Bowel Movements 0 1 2 Result Diagram: 02/07/17 0647 Imaging Last 24 hours Impressions Knee X-Ray 02/06/17 1639 Signed Impressions: Service Date/Time: January 17:31 - CONCLUSION: Left total knee arthroplasty changes again seen with a nonspecific joint effusion but no other acute abnormality seen. Nick Grossman MD Objective Remarks Incision dry. No calf tenderness X-ray looks fine. Assessment & Plan Assessment and Plan Malfunctioning left total knee replacement. Revision left knee, plastic liner: POD #3 no issues. +BM All plan: Weightbearing as tolerated Xarelto 10 mg daily for 7 days followed by 20 mg after that. Patient had previous pulmonary embolism and is on Xarelto as a baseline. DC Vick later today. Patient self catheterizes twice daily because of bladder dysfunction. No dressing change Oxycodone for pain clear to dc. dc home today. F2F signed Jeremy Serra Jr., MD Feb 09, 2017 13:45
--- NOTE | 2017-02-18 13:22 | HHI.DCPOC ---
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 Avoid second hand smoke Call the 24-hour hour crisis hotline for domestic abuse at Bianca Hamlin Feb 18, 2017 13:22
--- NOTE | 2017-02-18 13:25 | HHI.DS ---
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 She underwent left total knee arthroplasty 01/21/17 and recovered well. Her initial postop images appeared stable. When she followed up at 2 weeks postop she complained of painful clicking and imaging studies showed a displaced polyethylene liner. Surgical treatment was recommended for revision of the liner. She agreed and presents for the above. PE at Discharge Incision dry. No calf tenderness X-ray looks fine. Hospital Course Surgical treatment was performed on the day of admission. She recovered well in PACU and was transferred to the orthopaedic floor. Pain was controlled with IV and oral medications. DVT prophylaxis was initiated pod#0. She was compliant with continued restrictions and all TKA modifications. After 3 days she was found to be stable and again discharged to a long-term facility. She was instructed to continue therapy, continue her xarelto for 7 days at 10mg then resume 20mg, and to pursue a high fiber diet for 3-5 days. Pt Condition on Discharge: Stable Discharge Disposition: Discharge to SNF Discharge Instructions Diet Instructions: Diabetic Diet, High Fiber Diet Activities You Can Perform: Weight Bearing as Oz Activities to Avoid: Strenuous Activity Additional Activity Instruc.: TKA protocol New Medications: Oxycodone-Acetaminophen (Oxycodone-Acetaminophen) 5-325 mg Tab 1 TAB PO Q4H PRN PAIN LESS THAN 5 ON SCALE #50 TAB Rivaroxaban (Xarelto) 10 Mg Tab 10 MG PO Q24H Prevent Blood Clot #7 TAB Continued Medications: Acetaminophen (Mapap Extra Strength) 500 Mg Tab 500 MG PO Q4-6H PRN HEADACHE Ref 0 TAB Amitriptyline (Amitriptyline) 150 Mg Tab 150 MG PO HS Control Depression #30 Ref 0 TAB Atorvastatin (Atorvastatin) 10 Mg Tab 10 MG PO HS Cholesterol Management #30 Ref 0 TAB Citalopram (Citalopram) 40 Mg Tab 40 MG PO DAILY Control Depression #30 Ref 0 TAB Gabapentin (Gabapentin) 300 Mg Cap 300 MG PO BID #60 Ref 0 CAP Hydrocodone-Acetaminophen (Hydrocodone-Acetaminophen) 7.5-325 mg Tab 1 TAB PO Q4H PRN PAIN Ref 0 TAB Lansoprazole (Lansoprazole) 15 Mg Capdr 15 MG PO DAILY Ref 0 CAP Levothyroxine (Synthroid) 50 Mcg Tab 50 MCG PO DAILY Thyroid #30 Ref 0 TAB Lisinopril (Lisinopril) 2.5 Mg Tab 2.5 MG PO DAILY #30 Ref 0 TAB Metformin (Metformin) 500 Mg Tab 500 MG PO DAILY With a meal Blood Sugar Management #30 Ref 0 TAB Nadolol (Nadolol) 40 Mg Tab 40 MG PO BID #30 Ref 0 TAB Trazodone HCl (Trazodone HCl) 150 Mg Tablet 100 MG PO Bianca Hamlin Feb 18, 2017 13:25
== END 2017-02-09 15:00 | disposition home health service (06) | DRG 489 ==
LOC: HSDI 02-06 10:48 → N06B 02-06 19:55
PROVIDERS: ADMIT Orthopaedic Surgery Orthopaedic Surgery of the Spine; ATTEND Orthopaedic Surgery Orthopaedic Surgery of the Spine
PROC: 0SUW09Z Supplement Left Knee Joint, Tibial Surface with Liner, Open Approach (ICD-10-PCS; 2017-02-06)
PROC: 0SPD09Z Removal of Liner from Left Knee Joint, Open Approach (ICD-10-PCS; principal; 2017-02-06 14:52)
DX: T84.023A Instability of internal left knee prosthesis, initial encounter (principal); N31.9 Neuromuscular dysfunction of bladder, unspecified; M17.12 Unilateral primary osteoarthritis, left knee; Y79.2 Prosthetic and other implants, materials and accessory orthopedic devices associated with adverse incidents; Y92.009 Unspecified place in unspecified non-institutional (private) residence as the place of occurrence of the external cause; Y83.8 Other surgical procedures as the cause of abnormal reaction of the patient, or of later complication, without mention of misadventure at the time of the procedure; Z86.711 Personal history of pulmonary embolism; Z79.01 Long term (current) use of anticoagulants; E66.3 Overweight; Z68.36 Body mass index [BMI] 36.0-36.9, adult
CPT/HCPCS: 73560; 81001; 85014; 85018; 86850; 86900; 86901; 86920; 94150; C1776; C9290; J0690; J1170; J1580; J2250; J2270; J2370; J2405; J3010; J3370; J7050; J7120; L1830

== ENCOUNTER → 2017-02-05 | Outpatient (CLI) | payer OTHER ==
[~2017-02-05] MED LIST changes: +ENOX100P SQ; +GABA300C5 PO; +OXYC1TAB63 PO
[2017-02-05 13:04] LABS: BLOOD, URINE NEG (NEG); GLUCOSE,URINE NEG (NEG); KETONE, URINE NEG (NEG); MUCUS URINE FEW /lpf (OCC); NITRITE,URINE NEG (NEG); SQUAMOUS EPITHELIAL CELL URINE 4 /hpf (0-5); URINE COLOR YELLOW (YELLW/STRAW)
== END ==
LOC: CPRE 11:20
PROVIDERS: ATTEND Orthopaedic Surgery Orthopaedic Surgery of the Spine
DX: Z01.812 Encounter for preprocedural laboratory examination (principal); Z01.89 Encounter for other specified special examinations
CPT/HCPCS: 81001

== ENCOUNTER 2017-11-23 21:42 | Emergency (ER) | payer OTHER ==
[~2017-11-23] VITALS: Ht 154.9 cm; Wt 98.2 kg
[~2017-11-23 21:42] MED LIST changes: -COMMODE 3-IN-11 MIS; -CPMMACHINE; -GABA600T PO; +TRAZ1TAB14 PO; -TRAZ1TAB45 PO; -WALKER WHEELS/F1 MIS
[2017-11-23 21:55] VITALS: BP 163/80; PULSE 77; RESP 16; TEMP 97.9
[2017-11-23] MEDS ORDERED: SODIUM CHLORIDE 0.9% FLUSH 10 ML FLUSH IVF PRN (22:00)
[2017-11-23] MEDS ORDERED: LACT10SO PO (22:08)
[2017-11-23] MEDS ORDERED: AMIT50TA3 PO (22:08)
[2017-11-23 22:10] VITALS: O2SAT 95
--- NOTE | 2017-11-23 22:16 | RADRPT ---
EXAM DATE/TIME: 11/23/2017 22:00 [facility] COMPARISON: CT PULMONARY ANGIOGRAM, March 02, 2016, 21:58. CHEST SINGLE AP, March 01, 2016, 14:08. INDICATIONS : Shortness of breath today. MEDICAL HISTORY : Hypertension. Seizures. SURGICAL HISTORY : Appendectomy. Hysterectomy. ENCOUNTER: Initial ACUITY: 1 day PAIN SCORE: 0/10 LOCATION: Bilateral chest FINDINGS: There is a focal density at the left lung base felt to be related to chronic scarring. The lungs are otherwise clear. There are degenerative changes of the spine. Cardiomegaly. CONCLUSION: No acute disease. Breezy Lovell MD on November 23, 2017 at 22:13 Board Certified Radiologist. This report was verified electronically.
[2017-11-23 22:20] VITALS: BP_SYST 131; BP_SYST 141; BP_DIAS 62; BP_DIAS 64; PULSE 78; RESP 18; O2SAT 97
[2017-11-23 22:30] LABS: AUTOMATED NEUTROPHIL # 2.6 TH/MM3 (1.8-7.7); BASOPHIL % 0.7 % (0.0-2.0); EOSINOPHIL # 0.1 TH/MM3 (0-0.4); EOSINOPHIL % 3.5 % (0.0-4.0); HEMATOCRIT 37.3 % (35.0-46.0); HEMOGLOBIN 12.7 GM/DL (11.6-15.3); LYMPH % 29.1 % (9.0-44.0); LYMPHOCYTE # 1.2 TH/MM3 (1.0-4.8); MEAN CELL VOLUME 87.2 FL (80.0-100.0); MEAN CORPUSCULAR HEMOGLOBIN 29.6 PG (27.0-34.0); MEAN CORPUSCULAR HGB CONC 33.9 % (32.0-36.0); MEAN PLATELET VOLUME 8.4 FL (7.0-11.0); MONO % 9.6 % (0.0-8.0); MONOCYTE # 0.4 TH/MM3 (0-0.9); NEUT % 57.1 % (16.0-70.0); PLATELET COUNT 243 TH/MM3 (150-450); RED BLOOD COUNT 4.28 MIL/MM3 (4.00-5.30); RED CELL DISTRIBUTION WIDTH 13.2 % (11.6-17.2); WHITE BLOOD COUNT 4.3 TH/MM3 (4.0-11.0)
[2017-11-23 22:40] LABS: CHLORIDE 108 MEQ/L (98-107); SODIUM (NA) 141 MEQ/L (136-145)
--- NOTE | 2017-11-23 22:41 | PD ---
HPI Chief Complaint: Chest Pain Time Seen by Provider: 21:50 Travel History International Travel<30 days: No Contact w/Intl Traveler<30days: No Traveled to known affect area: No History of Present Illness HPI This is a 72-year-old female presents to the ER for shortness of breath and chest pain that started this afternoon. Patient states that pain is worse when she coughs or takes a deep breath. Pain is 3 out of 10, sharp, located in the mid chest and more to the right side of her chest. There is no radiation no arm numbness or tingling. Patient has a history of pulmonary embolism in the past and was taken blood thinners and it stopped a few months ago. Patient does not have any cough, fever or night. PFSH Past Medical History Arthritis: Yes Asthma: No Autoimmune Disease: No Anxiety: No Depression: No Heart Rhythm Problems: No Cancer: No Cardiovascular Problems: No High Cholesterol: No Chemotherapy: No Chest Pain: No Congestive Heart Failure: No COPD: No Cerebrovascular Accident: No Diabetes: Yes Patient Takes Glucophage: No Diminished Hearing: No Endocrine: Yes Gastrointestinal Disorders: Yes GERD: Yes Genitourinary: Yes (SELF CATH FOR YEARS) Headaches: Yes Hepatitis: No Hiatal Hernia: No Immune Disorder: No Implanted Vascular Access Dvce: Yes Kidney Stones: No Medical other: Yes (PAST HX ANEMIA--LOW IRON) Musculoskeletal: Yes (ARTHRITIS) Neurologic: Yes Psychiatric: Yes (PAST HX DEPRESSION) Reproductive: No Respiratory: Yes (HX PULMONARY EMBOLUS) Migraines: Yes Radiation Therapy: No Renal Failure: No Seizures: Yes (POSSIBLE SEIZURES ) Sickle Cell Disease: No Thyroid Disease: Yes (THYROID NODULES) Ulcer: No Tetanus Vaccination: Unknown Influenza Vaccination: Yes ?: Not Past Surgical History Abdominal Surgery: Yes (APPENDECTOMY) AICD: No Arteriovenous Shunt: No Body Medical Devices: implant bladder stimulator, metal in LEFT TOE Cardiac Surgery: No Ear Surgery: No Endocrine Surgery: No Eye Surgery: No Genitourinary Surgery: Yes (BLADDER STIMULATOR) Gynecologic Surgery: Yes (HYSTERECTOMY) Insulin Pump: No Joint Replacement: Yes (KNEE) Oral Surgery: Yes (TONSILLECTOMY) Pacemaker: No Thoracic Surgery: No Other Surgery: Yes Social History Alcohol Use: No Tobacco Use: No Substance Use: No Allergies-Medications (Allergen,Severity, Reaction): Coded Allergies: No Known Allergies (Verified Adverse Reaction, Unknown, 11/23/17) Reported Meds & Prescriptions Reported Meds & Active Scripts Active Ventolin Hfa 18 GM Inh (Albuterol Sulfate) 90 Mcg/Act Aer 2 Puff INH Q4-6H PRN Medrol Dosepak (Methylprednisolone) 4 Mg Dspk 4 Mg PO DIRECTED Per Pharmacist direction Reported Lactulose Liq (Lactulose) 10 Gm/15 Ml Soln 30 Ml PO HS Amitriptyline (Amitriptyline HCl) 50 Mg Tab 50 Mg PO HS Gabapentin 300 Mg Cap 300 Mg PO BID Synthroid (Levothyroxine Sodium) 50 Mcg Tab 50 Mcg PO DAILY Trazodone (Trazodone HCl) 150 Mg Tablet 100 Mg PO HS Nadolol 40 Mg Tab 40 Mg PO BID Lisinopril 2.5 Mg Tab 2.5 Mg PO DAILY Lansoprazole 15 Mg Capdr 15 Mg PO DAILY Citalopram (Citalopram Hydrobromide) 40 Mg Tab 40 Mg PO DAILY Atorvastatin (Atorvastatin Calcium) 10 Mg Tab 10 Mg PO HS Review of Systems Except as stated in HPI: all other systems reviewed are Neg Physical Exam Narrative GENERAL: Alert oriented 3 no acute distress SKIN: Focused skin assessment warm/dry. HEAD: Atraumatic. Normocephalic. EYES: Pupils equal and round. No scleral icterus. No injection or drainage. ENT: No nasal bleeding or discharge. Mucous membranes pink and moist. NECK: Trachea midline. CARDIOVASCULAR: Chest wall tenderness on palpation of the right chest, tenderness regular rate and rhythm. No murmur appreciated. RESPIRATORY: No accessory muscle use. Clear to auscultation. Breath sounds equal bilaterally. GASTROINTESTINAL: Abdomen soft, non-tender, nondistended. Hepatic and splenic margins not palpable. MUSCULOSKELETAL: No obvious deformities. No clubbing. No cyanosis. No edema. NEUROLOGICAL: Awake and alert. No obvious cranial nerve deficits. Motor grossly within normal limits. Normal speech. PSYCHIATRIC: Appropriate mood and affect; insight and judgment normal. Data Data Last Documented VS Orders Orders Electrocardiogram (11/23/17 21:58) B-Type Natriuretic Peptide (11/23/17 21:58) Ckmb (Isoenzyme) Profile (11/23/17 21:58) Complete Blood Count With Diff (11/23/17 21:58) Comprehensive Metabolic Panel (11/23/17 21:58) D-Dimer (11/23/17 21:58) Prothrombin Time / Inr (Pt) (11/23/17 21:58) Act Partial Throm Time (Ptt) (11/23/17 21:58) Troponin I (11/23/17 21:58) Lipase (11/23/17 21:58) Chest, Single Ap (11/23/17 21:58) Ecg Monitoring (11/23/17 21:58) Bilateral Bp Monitoring (11/23/17 21:58) Iv Access Insert/Monitor (11/23/17 21:58) Oximetry (11/23/17 21:58) Oxygen Administration (11/23/17 21:58) Sodium Chloride 0.9% Flush (Ns Flush) (11/23/17 22:00) Ct Pulmonary Angiogram (11/23/17 ) Iohexol 350 Inj (Omnipaque 350 Inj) (11/23/17 23:36) Albuterol-Ipratropium Neb (Duoneb Neb) (11/24/17 00:15) Ketorolac Inj (Toradol Inj) (11/24/17 00:15) Ed Discharge Order (11/24/17 01:29) Labs Laboratory Tests Test 11/23/17 22:10 White Blood Count 4.3 TH/MM3 Red Blood Count 4.28 MIL/MM3 Hemoglobin 12.7 GM/DL Hematocrit 37.3 % Mean Corpuscular Volume 87.2 FL Mean Corpuscular Hemoglobin 29.6 PG Mean Corpuscular Hemoglobin Concent 33.9 % Red Cell Distribution Width 13.2 % Platelet Count 243 TH/MM3 Mean Platelet Volume 8.4 FL Neutrophils (%) (Auto) 57.1 % Lymphocytes (%) (Auto) 29.1 % Monocytes (%) (Auto) 9.6 % Eosinophils (%) (Auto) 3.5 % Basophils (%) (Auto) 0.7 % Neutrophils # (Auto) 2.6 TH/MM3 Lymphocytes # (Auto) 1.2 TH/MM3 Monocytes # (Auto) 0.4 TH/MM3 Eosinophils # (Auto) 0.1 TH/MM3 Basophils # (Auto) 0.0 TH/MM3 CBC Comment DIFF FINAL Differential Comment Prothrombin Time 10.0 SEC Prothromb Time International Ratio 1.0 RATIO Activated Partial Thromboplast Time 19.7 SEC D-Dimer Quantitative (PE/DVT) 0.89 MG/L FEU Blood Urea Nitrogen 16 MG/DL Creatinine 0.93 MG/DL Random Glucose 149 MG/DL Total Protein 6.9 GM/DL Albumin 3.4 GM/DL Calcium Level 8.4 MG/DL Alkaline Phosphatase 73 U/L Aspartate Amino Transf (AST/SGOT) 21 U/L Alanine Aminotransferase (ALT/SGPT) 35 U/L Total Bilirubin 0.3 MG/DL Sodium Level 141 MEQ/L Potassium Level 3.6 MEQ/L Chloride Level 108 MEQ/L Carbon Dioxide Level 25.0 MEQ/L Anion Gap 8 MEQ/L Estimat Glomerular Filtration Rate 59 ML/MIN Total Creatine Kinase 55 U/L Troponin I LESS THAN 0.02 NG/ML B-Type Natriuretic Peptide 7 PG/ML Lipase 131 U/L MDM Medical Decision Making Medical Screen Exam Complete: Yes Emergency Medical Condition: Yes Differential Diagnosis Acute coronary syndrome, COPD, pneumonia, pneumothorax, pulmonary embolism. Narrative Course This is a 72-year-old female presented to the ER for shortness of breath. Patient pending labs and will be signed out to Dr. Neri next shift. Pending disposition. Scripts Albuterol 18 GM Inh (Ventolin Hfa 18 GM Inh) 90 Mcg/Act Aer 2 PUFF INH Q4-6H Y for SHORTNESS OF BREATH, #1 INHALER 0 Refills Prov: Maryjo Neri MD 11/24/17 Methylprednisolone Dosepak (Medrol Dosepak) 4 Mg Dspk 4 MG PO DIRECTED, #1 DSPK 0 Refills Per Pharmacist direction Prov: Maryjo Neri MD 11/24/17 Condition: Stable Teo Woo MD Nov 23, 2017 22:41
[2017-11-23 22:44] LABS: ALBUMIN 3.4 GM/DL (3.4-5.0); CALCIUM 8.4 MG/DL (8.5-10.1); GLUCOSE,RANDOM 149 MG/DL (74-106)
[2017-11-23 22:45] LABS: BLOOD UREA NITROGEN 16 MG/DL (7-18)
[2017-11-23 22:47] LABS: ALT (GPT) 35 U/L (10-53); AST (GOT) 21 U/L (15-37); CREATININE 0.93 MG/DL (0.50-1.00); GLOMERULAR FILTRATION RATE 59 ML/MIN (>89)
[2017-11-23 22:49] LABS: D-DIMER 0.89 MG/L FEU (0.00-0.50); TOTAL BILIRUBIN ADULT 0.3 MG/DL (0.2-1.0); TOTAL PROTEIN 6.9 GM/DL (6.4-8.2)
[2017-11-23 22:50] LABS: ALKALINE PHOSPHATASE 73 U/L (45-117)
[2017-11-23 22:52] LABS: TROPONIN I LESS THAN 0.02 NG/ML (0.02-0.05)
[2017-11-23 23:00] VITALS: BP 118/64; PULSE 75; RESP 16; O2SAT 97
[2017-11-23] MEDS ORDERED: IOHEXOL 350 MG/ML 10 ML VIAL (for RAD DIAG) IVCONTRAST ONE (23:36)
--- NOTE | 2017-11-23 23:49 | RADRPT ---
EXAM DATE/TIME: 11/23/2017 23:21 [facility] COMPARISON: CT PULMONARY ANGIOGRAM, March 02, 2016, 21:58. INDICATIONS : Chest pain. Shortness of breath. IV CONTRAST: 75 cc Omnipaque 350 (iohexol) IV RADIATION DOSE: 18.41 CTDIvol (mGy) MEDICAL HISTORY : Diabetes mellitus type 1. SURGICAL HISTORY : None. ENCOUNTER: Initial ACUITY: 1 day PAIN SCALE: 4/10 LOCATION: chest middle TECHNIQUE: Volumetric scanning of the chest was performed using a pulmonary embolism protocol MIP images were re constructed. Using automated exposure control and adjustment of the mA and/or kV according to patien t size, radiation dose was kept as low as reasonably achievable to obtain optimal diagnostic quality images. DICOM format image data is available electronically for review and comparison. Follow-up recommendations for detected pulmonary nodules are based at a minimum on nodule size and pa tient risk factors according to Fleischner Society Guidelines. FINDINGS: PULMONARY ARTERIES: No filling defects are seen in the pulmonary arteries through the segmental level. LUNGS: There is chronic atelectasis or linear scarring in the lung bases. There is a stable nodular density in the central right lung base. There is no evidence of pneumonia PLEURAE: There is no pleural thickening or pleural effusion. MEDIASTINUM: Stable goitrous heterogeneity of the thyroid coronary calcifications. Small hiatal hernia MUSCULOSKELETAL: Within normal limits for patient age. MISCELLANEOUS: The visualized upper abdominal organs demonstrate no acute abnormality. CONCLUSION: No evidence of pulmonary embolism Nick Child MD on November 23, 2017 at 23:40 Board Certified Radiologist. This report was verified electronically.
[2017-11-24] MEDS ORDERED: RESP: ALBUTEROL 2.5 MG/IPRATROPIUM 0.5 MG NEB (SCH) NEB ONE (00:15)
[2017-11-24] MEDS ORDERED: KETOROLAC TROMETHAMINE 30 MG/ML (IVP) VIAL IV PUSH ONE (00:15)
--- NOTE | 2017-11-24 00:15 | PD ---
Physical Exam Date Seen by Provider: Nov 24, 2017 Time Seen by Provider: 00:11 Narrative Accepted in transfer of care from Dr. Woo GENERAL: Well-developed well-nourished female no acute distress no respiratory distress appears mildly anxious O2 saturations 96% SKIN: Warm and dry. HEAD: Normocephalic. EYES: No scleral icterus. No injection or drainage. NECK: Supple, trachea midline. No JVD or lymphadenopathy. CARDIOVASCULAR: Regular rate and rhythm without murmurs, gallops, or rubs. RESPIRATORY: Breath sounds equal bilaterally except for a few expiratory wheezes. No accessory muscle use. GASTROINTESTINAL: Abdomen soft, non-tender, nondistended. MUSCULOSKELETAL: No cyanosis, or edema. BACK: Nontender without obvious deformity. No CVA tenderness. Data Data Last Documented VS Vital Signs Date Time Temp Pulse Resp B/P (MAP) Pulse Ox O2 Delivery O2 Flow Rate FiO2 11/24/17 01:19 74 16 132/56 (81) 95 Nasal Cannula 2.00 11/23/17 21:55 97.9 Orders Orders Electrocardiogram (11/23/17 ) Electrocardiogram (11/23/17 21:58) B-Type Natriuretic Peptide (11/23/17 21:58) Ckmb (Isoenzyme) Profile (11/23/17 21:58) Complete Blood Count With Diff (11/23/17 21:58) Comprehensive Metabolic Panel (11/23/17 21:58) D-Dimer (11/23/17 21:58) Prothrombin Time / Inr (Pt) (11/23/17 21:58) Act Partial Throm Time (Ptt) (11/23/17 21:58) Troponin I (11/23/17 21:58) Lipase (11/23/17 21:58) Chest, Single Ap (11/23/17 21:58) Ecg Monitoring (11/23/17 21:58) Bilateral Bp Monitoring (11/23/17 21:58) Iv Access Insert/Monitor (11/23/17 21:58) Oximetry (11/23/17 21:58) Oxygen Administration (11/23/17 21:58) Sodium Chloride 0.9% Flush (Ns Flush) (11/23/17 22:00) Ct Pulmonary Angiogram (11/23/17 ) Iohexol 350 Inj (Omnipaque 350 Inj) (11/23/17 23:36) Albuterol-Ipratropium Neb (Duoneb Neb) (11/24/17 00:15) Ketorolac Inj (Toradol Inj) (11/24/17 00:15) Ed Discharge Order (11/24/17 01:29) Labs Laboratory Tests Test 11/23/17 22:10 White Blood Count 4.3 TH/MM3 Red Blood Count 4.28 MIL/MM3 Hemoglobin 12.7 GM/DL Hematocrit 37.3 % Mean Corpuscular Volume 87.2 FL Mean Corpuscular Hemoglobin 29.6 PG Mean Corpuscular Hemoglobin Concent 33.9 % Red Cell Distribution Width 13.2 % Platelet Count 243 TH/MM3 Mean Platelet Volume 8.4 FL Neutrophils (%) (Auto) 57.1 % Lymphocytes (%) (Auto) 29.1 % Monocytes (%) (Auto) 9.6 % Eosinophils (%) (Auto) 3.5 % Basophils (%) (Auto) 0.7 % Neutrophils # (Auto) 2.6 TH/MM3 Lymphocytes # (Auto) 1.2 TH/MM3 Monocytes # (Auto) 0.4 TH/MM3 Eosinophils # (Auto) 0.1 TH/MM3 Basophils # (Auto) 0.0 TH/MM3 CBC Comment DIFF FINAL Differential Comment Prothrombin Time 10.0 SEC Prothromb Time International Ratio 1.0 RATIO Activated Partial Thromboplast Time 19.7 SEC D-Dimer Quantitative (PE/DVT) 0.89 MG/L FEU Blood Urea Nitrogen 16 MG/DL Creatinine 0.93 MG/DL Random Glucose 149 MG/DL Total Protein 6.9 GM/DL Albumin 3.4 GM/DL Calcium Level 8.4 MG/DL Alkaline Phosphatase 73 U/L Aspartate Amino Transf (AST/SGOT) 21 U/L Alanine Aminotransferase (ALT/SGPT) 35 U/L Total Bilirubin 0.3 MG/DL Sodium Level 141 MEQ/L Potassium Level 3.6 MEQ/L Chloride Level 108 MEQ/L Carbon Dioxide Level 25.0 MEQ/L Anion Gap 8 MEQ/L Estimat Glomerular Filtration Rate 59 ML/MIN Total Creatine Kinase 55 U/L Troponin I LESS THAN 0.02 NG/ML B-Type Natriuretic Peptide 7 PG/ML Lipase 131 U/L [facility] Medical Record Reviewed: Yes Supervised Visit with AQUILES: No Differential Diagnosis Accepted in transfer of care from Dr. Woo; please refer to his dictation Narrative Course Accepted in transfer of care from Dr. Woo; follow up on pending CT pulmonary angiogram CT a is negative for PE; patient is aware of negative CT pulmonary angiogram; patient continues to complain of shortness of breath; appears mildly anxious; lung sounds clear except for expiratory wheeze no rails BNP is not elevated at 7 ; cardiac enzymes are found to be in normal range; EKG is sinus rhythm rate [address] elevation injury pattern or ectopy noted. Patient will be given DuoNeb updraft 1. Will reassess patient after updraft treatment to see if symptoms resolve otherwise will place patient in observation for atypical chest pain possibly dyspnea is patient's new anginal equivalent --cardiac risk factors age 72, hypertension, dyslipidemia, diabetes. Diagnosis Primary Impression: Dyspnea Additional Impression: Bronchitis Referrals: Primary Care Physician call for appointment Patient Instructions: General Instructions Additional Instruction: Follow-up with your primary care provider Return to the emergency department for any concerns or change in condition Take acetaminophen as needed for fever 100.4F or greater Increase fluid hydration Med/Other Pt SpecificInfo: Prescription(s) given Scripts Albuterol 18 GM Inh (Ventolin Hfa 18 GM Inh) 90 Mcg/Act Aer 2 PUFF INH Q4-6H Y for SHORTNESS OF BREATH, #1 INHALER 0 Refills Prov: Maryjo Neri MD 11/24/17 Methylprednisolone Dosepak (Medrol Dosepak) 4 Mg Dspk 4 MG PO DIRECTED, #1 DSPK 0 Refills Per Pharmacist direction Prov: Maryjo Neri MD 11/24/17 Disposition: 01 DISCHARGE HOME Condition: Stable Maryjo Neri MD Nov 24, 2017 00:15
[2017-11-24 00:20] VITALS: O2SAT 94
[2017-11-24 01:19] VITALS: BP 132/56; PULSE 74; RESP 16; O2SAT 95
[2017-11-24] MEDS ORDERED: VENTAER INH (01:43)
[2017-11-24] MEDS ORDERED: MEDR4PAK PO (01:43)
--- NOTE | 2017-11-24 08:46 | EKG ---
Date Performed: 11/23/2017 Time Performed: 21:54:57 PTAGE: 72 years EKG: Sinus rhythm NORMAL ECG PREVIOUS TRACING : 03/03/2016 09.16 Since the previous tracing, no significant change noted DOCTOR: Ester Heaton Interpretating Date/Time 11/24/2017 08:45:49
== END 2017-11-24 02:00 | disposition home or self-care (01) ==
LOC: PHED 21:42
DX: J40 Bronchitis, not specified as acute or chronic (principal); Z86.711 Personal history of pulmonary embolism; M19.90 Unspecified osteoarthritis, unspecified site; E11.9 Type 2 diabetes mellitus without complications; K21.9 Gastro-esophageal reflux disease without esophagitis; D64.9 Anemia, unspecified; R56.9 Unspecified convulsions; E04.1 Nontoxic single thyroid nodule; Z79.51 Long term (current) use of inhaled steroids
CPT/HCPCS: 71045; 71275; 80053; 82550; 83690; 83880; 84484; 85025; 85379; 85610; 85730; 93005; 94664; 96374; 99285; J1885; Q9967